=== PATIENT | female | born 1990 | race Two or more races ===

== ENCOUNTER 2020-11-09 19:32 | Emergency (ER) | payer MEDICAID, OTHER ==
[~2020-11-09] VITALS: Ht 157.5 cm; Wt 87.1 kg
[2020-11-09 19:45] VITALS: BP 119/73
[2020-11-09] MEDS ORDERED: cefTRIAXone SOD 1,000 MG VL IM ONE (22:30)
[2020-11-09] MEDS ORDERED: ACETAMINOPHEN 500 MG TAB PO ONE (22:45)
== END 2020-11-09 23:08 | disposition home or self-care (01) ==
LOC: ER 19:32
DX: K08.89 Other specified disorders of teeth and supporting structures (principal)
CPT/HCPCS: 96372; 99283; J0696